=== PATIENT | male | born 1970 | race Hispanic/Latino ===

== ENCOUNTER 2018-08-10 10:58 | Emergency (ER) | payer OTHER ==
[~2018-08-10] VITALS: Ht 165.1 cm; Wt 86.2 kg
--- OUTSIDE RECORDS SUMMARY | 2018-08-10 11:01 | XMS REPORT | Clinical Summary ---
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 Active meloxicam (MOBIC) 15 mg Take 1 tablet 10 tablet 0 tablet (15 mg total) 8 by mouth daily as needed for mild pain for up to 10 doses. 01/08/2018 acetaminophen-codeine Take 1 tablet 10 tablet 0 (TYLENOL WITH CODEINE #3) by mouth 8 300-30 mg per tablet every 6 (six) hours as needed for moderate pain for up to 10 doses. Active Problems Not on file Encounters Care Team Description Date Type Specialty Hugo Campo DO Keller, Jason James, Von Senior MD Right upper quadrant abdominal pain (Primary Dx); Right lower quadrant abdominal pain; Nausea; Other microscopic hematuria 01/04/2018 Emergency Emergency Medicine - 01/05/2018 after 08/09/2017 Social History Date Tobacco Use Types Packs/Day Years Used Never Smoker Smokeless Tobacco: Never Used Alcohol Use Drinks/Week oz/Week Comments No Sex Assigned at Date Recorded Not on file Industry Job Start Date Occupation Not on file Not on file Not on file Travel End Travel History Travel Start No recent travel history available. Last Filed Vital Signs Time Taken Vital Sign Reading 01/05/2018 1:06 AM CDT Blood Pressure 121/84 01/05/2018 1:06 AM CDT Pulse 74 01/04/2018 9:01 PM CDT Temperature 36.6 C (97.8 F) 01/05/2018 1:06 AM CDT Respiratory Rate 16 01/05/2018 1:06 AM CDT Oxygen Saturation 97% - Inhaled Oxygen - Concentration 01/04/2018 8:32 PM CDT Weight 86.6 kg (191 lb) 01/04/2018 8:32 PM CDT Height 165.1 cm (5' 5") 01/04/2018 8:32 PM CDT Body Mass Index 31.78 Plan of Treatment Health Maintenance Due Date Last Done Comments COLON CANCER SCREENING 2018 SHINGLES VACCINES (#1) 2018 INFLUENZA VACCINE 10/04/2018 Procedures Comments Procedure Name Priority Date/Time Associated Diagnosis ECG ED PRELIMINARY Routine 01/05/2018 INTERPRETATION 1:[address] ABDOMEN PELVIS W STAT 01/04/2018 CONTRAST 10:52 PM CDT ECG 12-LEAD STAT 01/04/2018 10:16 PM CDT TROPONIN STAT 01/04/2018 7:15 PM CDT ESTIMATED GFR STAT 01/04/2018 7:15 PM CDT CREATINE KINASE, TOTAL STAT 01/04/2018 (CPK) 7:15 PM CDT URINALYSIS SCREEN AND STAT 01/04/2018 MICROSCOPY, WITH REFLEX 7:15 PM CDT TO CULTURE PARTIAL THROMBOPLASTIN STAT 01/04/2018 TIME (PTT) 7:15 PM CDT PROTHROMBIN TIME WITH INR STAT 01/04/2018 7:15 PM CDT LIPASE LEVEL STAT 01/04/2018 7:15 PM CDT COMPREHENSIVE METABOLIC STAT 01/04/2018 PANEL 7:15 PM CDT HC COMPLETE BLD COUNT STAT 01/04/2018 W/AUTO DIFF 7:15 PM CDT after 08/09/2017 Results * ECG ED Preliminary Interpretation - NOT AN ORDER (01/05/2018 1:12 AM CDT) Narrative Performed At [facility] 01/05/20183:12 AM ECG ED Preliminary Interpretation - Not an Order Performed by: ANGELICA BRAUN Authorized by: ANGELICA BRAUN ECG reviewed by ED Physician in the absence of a repairer veneer sheet: yes Previous ECG: Previous ECG:Unavailable Interpretation: Interpretation: normal Rate: ECG rate:68 ECG rate assessment: normal Rhythm: Rhythm: sinus rhythm Rhythm comment:With sinus arrhythmia QRS: QRS axis:Normal QRS intervals:Normal ST segments: ST segments:Normal T waves: T waves: non-specific * CT Abdomen Pelvis W Contrast (01/04/2018 10:52 PM CDT) Specimen Narrative Performed At EXAMINATION:CT ABDOMEN PELVIS W CONTRAST [facility]IANT CLINICAL HISTORY:RUQRLQ abdominal pain TECHNIQUE: Multiple axial images of the abdomen and pelvis were obtained following intravenous administration of iodinated contrast. Sagittal and coronal computerized reformatted images were also obtained. CT imaging was performed with iterative reconstruction technique and/or automated exposure control to reduce radiation dose. COMPARISON:None. IMPRESSION: Patient is status post cholecystectomy. Liver, spleen, pancreas, adrenal glands are normal. Kidneys, ureters and bladder are normal. No free intraperitoneal fluid or air. Diverticulosis is seen without diverticulitis. The appendix is normal. No gastrointestinal tract obstruction. A few prominent fluid-filled loops of small bowel are seen of the peritoneal cavity. This is nonspecific but could be seen with ileus or enteritis. No acute osseous abnormalities. CONCLUSION: A few prominent fluid-filled loops of small bowel are seen of the peritoneal cavity. This is nonspecific but could be seen with ileus or enteritis. [facility]-[id number] Procedure Note [facility], Radiology Results Incoming - 01/04/2018 11:07 PM CDT EXAMINATION: CT ABDOMEN PELVIS W CONTRAST CLINICAL HISTORY: RUQ RLQ abdominal pain TECHNIQUE: Multiple axial images of the abdomen and pelvis were obtained following intravenous administration of iodinated contrast. Sagittal and coronal computerized reformatted images were also obtained. CT imaging was performed with iterative reconstruction technique and/or automated exposure control to reduce radiation dose. COMPARISON: None. IMPRESSION: Patient is status post cholecystectomy. Liver, spleen, pancreas, adrenal glands are normal. Kidneys, ureters and bladder are normal. No free intraperitoneal fluid or air. Diverticulosis is seen without diverticulitis. The appendix is normal. No gastrointestinal tract obstruction. A few prominent fluid-filled loops of small bowel are seen of the peritoneal cavity. This is nonspecific but could be seen with ileus or enteritis. No acute osseous abnormalities. CONCLUSION: A few prominent fluid-filled loops of small bowel are seen of the peritoneal cavity. This is nonspecific but could be seen with ileus or enteritis. [facility]-[id number] Performing Organization Address [facility]/Zipcode Phone Number [facility] [address] [place] [address] * ECG 12 lead (01/04/2018 10:16 PM CDT) Ventricular 68 [facility]USE rate Atrial rate 68 [facility] WA interval 172 [facility] QRSD interval 100 [facility] QT interval 390 [facility] QTC interval 414 [facility] P axis 1 62 [facility] QRS axis 1 -20 [facility] T wave axis 4 [facility] EKG impression Normal sinus rhythm with sinus [facility] MUSE arrhythmia-Normal ECG-In automated comparison with ECG of 01-JUL-2015 19:22,-No significant change was found- Specimen Performing Organization Address [facility] Phone Number [facility] MUSE [address] [place] [address] * Urinalysis screen and microscopy, with reflex to culture (01/04/2018 7:15 PM CDT) Specimen site Clean catch [facility] DEPARTMENT OF PATHOLOGY AND GENOMIC MEDICINE Color, UA Yellow [facility] DEPARTMENT OF PATHOLOGY AND GENOMIC MEDICINE Appearance, UA Slightly-Cloudy [facility] DEPARTMENT OF PATHOLOGY AND GENOMIC MEDICINE Specific 1.019 1.001 - 1.035 [facility] gravity, DEPARTMENT OF PATHOLOGY AND GENOMIC MEDICINE pH, UA 6.0 5.0 - 8.5 [facility] DEPARTMENT OF PATHOLOGY AND GENOMIC MEDICINE Protein, UA Negative Negative [facility] DEPARTMENT OF PATHOLOGY AND GENOMIC MEDICINE Glucose, UA 1+ (A) Negative [facility] DEPARTMENT OF PATHOLOGY AND GENOMIC MEDICINE Ketones, UA Negative Negative [facility] DEPARTMENT OF PATHOLOGY AND GENOMIC MEDICINE Bilirubin, UA Negative Negative [facility] DEPARTMENT OF PATHOLOGY AND GENOMIC MEDICINE Blood, UA Moderate (A) Negative [facility] DEPARTMENT OF PATHOLOGY AND GENOMIC MEDICINE Nitrite, UA Negative Negative [facility] DEPARTMENT OF PATHOLOGY AND GENOMIC MEDICINE Urobilinogen, 2.0 (A) <2.0 [facility] UA DEPARTMENT OF PATHOLOGY AND GENOMIC MEDICINE Leukocyte Negative Negative [facility] esterase, UA DEPARTMENT OF PATHOLOGY AND GENOMIC MEDICINE Round Few 0 - 1 /HPF [facility] epithelial DEPARTMENT OF cells, PATHOLOGY AND GENOMIC MEDICINE WBC, UA None seen 0 - 1 /HPF [facility] DEPARTMENT OF PATHOLOGY AND GENOMIC MEDICINE RBC, UA 0-5 0 - 5 /HPF [facility] DEPARTMENT OF PATHOLOGY AND GENOMIC MEDICINE Bacteria, UA Trace None seen [facility] DEPARTMENT OF PATHOLOGY AND GENOMIC MEDICINE Yeast, UA None seen [facility] DEPARTMENT OF PATHOLOGY AND GENOMIC MEDICINE Yeast with None seen [facility] pseudohyphae, DEPARTMENT OF PATHOLOGY AND GENOMIC MEDICINE Amorphous Few [facility] crystals DEPARTMENT OF PATHOLOGY AND GENOMIC MEDICINE Specimen Urine Performing Organization Address City/[facility] Cent[facility]ode Phone Number [address] [place] [address] PATHOLOGY AND GENOMIC MEDICINE * Estimated GFR (01/04/2018 7:15 PM CDT) [facility] Estimated GFR >=90 mL/min/1.73 m2 [facility] Comment: DEPARTMENT OF [employer]ory[employer]its[employer] PATHOLOGY AND rpretation GENOMIC G1 MEDICINE >=90 Normal or high G2 60-89Mildly decreased [id number] Mildly to moderately decreased [id number] Moderately to severely decreased G4 15-29Severely decreased G5 <15Kidney failure The eGFR was calculated using the Chronic Kidney Disease Epidemiology Collaboration (CKD-EPI) equation. Interpretation is based on recommendations of the National Kidney Foundation-Kidney Disease Outcomes Quality Initiative (NKF-KDOQI) published in 2014. Specimen Plasma specimen Performing Organization Address City/[facility] Phone Number [address] [place] [address] PATHOLOGY AND GENOMIC MEDICINE * Troponin (01/04/2018 7:15 PM CDT) Pathologist [facility] Troponin <0.300 0.000 - 0.300 ng/mL [facility] Comment: DEPARTMENT OF 0.30 - 1.49 PATHOLOGY AND ng/mlMay GENOMIC indicate increased risk of MEDICINE acute coronary syndrome. >=1.5 ng/ml Consistent with acute myocardial infarction. The diagnostic value of a single normal or non-diagnostic result is questionable.Serial samples at 2-6 hour intervals are required to rule out acute myocardial injury. Specimen Plasma specimen Performing Organization Address [facility] Phone Number [address] [place] [phone] PATHOLOGY AND GENOMIC MEDICINE * Partial thromboplastin time, activated (01/04/2018 7:15 PM CDT) Pathologist [facility] PTT 30.9 23.0 - 36.0 sec [facility] Comment: DEPARTMENT OF PTT therapeutic range for PATHOLOGY AND unfractionated heparin is GENOMIC 61.0-112.0 seconds which MEDICINE corresponds to Anti-Xa 0.3-0.7 U/ml. Specimen Blood Performing Organization Address [facility] Phone Number [address] [place] [address] PATHOLOGY AND GENOMIC [facility] * Prothrombin time with INR (01/04/2018 7:15 PM CDT) Pathologist [facility] Prothrombin 11.4 (L) 11.5 - 14.5 sec [facility] time DEPARTMENT OF PATHOLOGY AND GENOMIC MEDICINE INR 0.8 [facility] Comment: DEPARTMENT OF The International Normalized PATHOLOGY AND Ratio (INR) is a therapeutic GENOMIC monitoring tool for patients MEDICINE who are stable on oral anticoagulant therapy. An INR of 2.0-3.0 is suggested for deep vein thrombosis/pulmonary embolism. Specimen Blood Performing Organization Address [facility] Phone Number [address] [place] [phone] PATHOLOGY AND GENOMIC MEDICINE * CBC with platelet and differential (01/04/2018 7:15 PM CDT) Pathologist [facility] WBC 5.51 4.50 - 11.00 k/uL [facility] DEPARTMENT OF PATHOLOGY AND GENOMIC MEDICINE RBC 4.90 4.40 - 6.00 m/uL [facility] DEPARTMENT OF PATHOLOGY AND GENOMIC MEDICINE HGB 14.5 14.0 - 18.0 g/dL [facility] DEPARTMENT OF PATHOLOGY AND GENOMIC MEDICINE HCT 42.7 41.0 - 51.0 % [facility] DEPARTMENT OF PATHOLOGY AND GENOMIC MEDICINE MCV 87.1 82.0 - 100.0 fL [facility] DEPARTMENT OF PATHOLOGY AND GENOMIC MEDICINE MCH 29.6 27.0 - 34.0 pg [facility] DEPARTMENT OF PATHOLOGY AND GENOMIC MEDICINE MCHC 34.0 31.0 - 37.0 g/dL [facility] DEPARTMENT OF PATHOLOGY AND GENOMIC MEDICINE RDW - SD 38.8 37.0 - 55.0 fL [facility] DEPARTMENT OF PATHOLOGY AND GENOMIC MEDICINE MPV 12.1 8.8 - 13.2 fL [facility] DEPARTMENT OF PATHOLOGY AND GENOMIC MEDICINE Platelet count 215 150 - 400 k/uL [facility] DEPARTMENT OF PATHOLOGY AND GENOMIC MEDICINE Nucleated RBC 0.00 /100 WBC [facility] DEPARTMENT OF PATHOLOGY AND GENOMIC MEDICINE Neutrophils 52.5 39.0 - 69.0 % [facility] DEPARTMENT OF PATHOLOGY AND GENOMIC MEDICINE Lymphocytes 38.1 25.0 - 45.0 % [facility] DEPARTMENT OF PATHOLOGY AND GENOMIC MEDICINE Monocytes 6.9 0.0 - 10.0 % [facility] DEPARTMENT OF PATHOLOGY AND GENOMIC MEDICINE Eosinophils 1.6 0.0 - 5.0 % [facility] DEPARTMENT OF PATHOLOGY AND GENOMIC MEDICINE Basophils 0.7 0.0 - 1.0 % [facility] DEPARTMENT OF PATHOLOGY AND GENOMIC MEDICINE Specimen Blood Performing Organization Address City/[facility] Cent[facility]ode Phone Number [address] [place] [address] [facility] * Lipase level (01/04/2018 7:15 PM CDT) Lipase 31 13 - 60 U/L [facility] DEPARTMENT OF PATHOLOGY AND GENOMIC MEDICINE Specimen Plasma specimen Performing Organization Address City/[facility] Phone Number [address] [place] [address] [facility] * Creatine kinase, total (CPK) (01/04/2018 7:15 PM CDT) Creatine kinase 179 39 - 308 U/L [facility] DEPARTMENT OF PATHOLOGY AND GENOMIC MEDICINE Specimen Plasma specimen Performing Organization Address [place]/[facility] Phone Number [address] [place] [address] [facility] * Comprehensive metabolic panel (01/04/2018 7:15 PM CDT) Sodium 141 135 - 148 mEq/L [facility] DEPARTMENT OF PATHOLOGY AND GENOMIC MEDICINE Potassium 4.6 3.5 - 5.0 mEq/L [facility] DEPARTMENT OF PATHOLOGY AND GENOMIC MEDICINE Chloride 105 98 - 112 mEq/L [facility] DEPARTMENT OF PATHOLOGY AND GENOMIC MEDICINE CO2 24 24 - 31 mEq/L [facility] DEPARTMENT OF PATHOLOGY AND GENOMIC MEDICINE Anion gap 12@ANIO 7 - 15 mEq/L [facility] DEPARTMENT OF PATHOLOGY AND GENOMIC MEDICINE BUN 17 6 - 20 mg/dL [facility] DEPARTMENT OF PATHOLOGY AND GENOMIC MEDICINE Creatinine 0.90 0.70 - 1.20 mg/dL [facility] DEPARTMENT OF PATHOLOGY AND GENOMIC MEDICINE Glucose 132 (H) 65 - 99 mg/dL [facility] DEPARTMENT OF PATHOLOGY AND GENOMIC MEDICINE Calcium 9.0 8.3 - 10.2 mg/dL [facility] DEPARTMENT OF PATHOLOGY AND GENOMIC MEDICINE Protein 7.6 6.3 - 8.3 g/dL [facility] Comment: DEPARTMENT OF PATHOLOGY AND 4.6-7.0 g/dL GENOMIC 1 MEDICINE week 4.4-7.6 g/dL 7 months-1year 5.1-7.3 g/dL 1-2 years5.6-7 .5 g/dL >3 years6.0-8 .0 g/dL 18-150 6.3-8.3 g/dL Albumin 4.1 3.5 - 5.0 g/dL [facility] DEPARTMENT OF PATHOLOGY AND GENOMIC MEDICINE A/G ratio 1.2 0.7 - 3.8 [facility] DEPARTMENT OF PATHOLOGY AND GENOMIC MEDICINE Alkaline 74 40 - 129 U/L [facility] phosphatase DEPARTMENT OF PATHOLOGY AND GENOMIC MEDICINE AST 32 10 - 50 U/L [facility] DEPARTMENT OF PATHOLOGY AND GENOMIC MEDICINE ALT 28 5 - 50 U/L [facility] DEPARTMENT OF PATHOLOGY AND GENOMIC MEDICINE Total bilirubin 0.3 0.0 - 1.2 mg/dL [facility] DEPARTMENT OF PATHOLOGY AND GENOMIC MEDICINE Specimen Plasma specimen Performing Organization Address City/State/[employer] Phone Number [facility] [place] [address] [place] [address] PATHOLOGY AND GENOMIC MEDICINE after 08/09/2017 Insurance Type Payer Benefit Subscriber ID Effective Phone Address Plan / Dates Group O CIGNA CIGNA OPEN xxxxxxxxx 2017-P ACCESS/NET resent WORK Advance Directives Patient has advance care planning documents on file. For more information, shweta chow contact: Juan Ventura [address] [place] [address]
--- NOTE | 2018-08-10 11:45 | Diagnostic Imaging Report ---
Exam: Right foot 2 views History: Pain Comparison: None. Findings: No fracture or malalignment. Bipartite tibial sesamoid. Accessory navicular. No abnormal soft tissue calcification or soft tissue defect. Dorsal and plantar calcaneal enthesophytes. Impression: No acute osseous abnormality Signed by: Dr. Dale Paul M.D. on 08/10/2018 11:42 AM
== END 2018-08-10 11:53 | disposition home or self-care (01) ==
LOC: FSED 10:58
DX: M79.671 Pain in right foot (principal); M10.071 Idiopathic gout, right ankle and foot
CPT/HCPCS: 99283